=== PATIENT | male | born 1980 | race Caucasian/White ===

== ENCOUNTER 2024-05-10 15:34 | Emergency (ER) | payer BC ==
[2024-05-10] MEDS ORDERED: Bacitracin 1 PK ONE (16:03)
[2024-05-10] MEDS ORDERED: Boostrix 0.5 ML (Tdap) VIAL (>/=7 yrs of age) ONE (16:03)
== END 2024-05-10 16:30 | disposition home or self-care (01) ==
LOC: NAV ERS 15:34
DX: S61.216A Laceration without foreign body of right little finger without damage to nail, initial encounter (principal); I10 Essential (primary) hypertension; Z79.899 Other long term (current) drug therapy; W21.89XA Striking against or struck by other sports equipment, initial encounter; Y93.73 Activity, racquet and hand sports
CPT/HCPCS: 12002; 90715; 99283